=== PATIENT | male | born 2000 | race African-American/Black ===

== ENCOUNTER 2021-09-05 19:47 | Emergency (ER) | payer OTHER ==
[2021-09-05] MEDS ORDERED: Iopamidol 370 76% 100 ML VIAL FS ONE (19:48)
[2021-09-05 20:25] LABS: #Basophils 0.1 thou/uL (0.0-0.2); #Lymphocytes 1.2 thou/uL (1.20-3.40); #Monocytes 0.2 thou/uL (0.11-0.59); #Neutrophils 2.4 thou/uL (1.40-6.50); %Basophils 1.4 % (0.0-1.0); %Eosinophils 0.4 % (0.0-10.0); %Lymphocytes 31.2 % (21.0-51.0); %Monocytes 5.4 % (0.0-10.0); %Neutrophils 61.6 % (42.0-75.0); Hemoglobin 15.5 g/dL (14.0-18.0); Mean Corpuscular HGB CONC 31.6 g/dL (32.0-36.0); Mean Corpuscular Hemoglobin 25.1 pg (27.0-31.0); Mean Corpuscular Volume 79.7 fL (78.0-98.0); Mean Platelet Volume 10.4 fL (7.4-10.4); Platelet Count 111 thou/uL (130-400); Platelet Morphology Comment Appears Decreased; RBC Distribution Width 11.2 % (11.5-14.5); RBC Morphology Normal; Red Blood Cell (RBC) Count 6.16 mill/uL (4.70-6.10); White Blood Cell (WBC) Count 3.8 thou/uL (4.8-10.8)
[2021-09-05 20:32] LABS: ALT (SGPT) 35 U/L (8-55); AST (SGOT) 38 U/L (5-34); Albumin 4.4 g/dL (3.5-5.0); Alkaline Phosphatase 60 U/L (40-110); Anion Gap 13 mmol/L (10-20); BUN (Urea Nitrogen) 14 mg/dL (8.9-20.6); Bilirubin, Total 0.4 mg/dL (0.2-1.2); Calc. Creatinine Clearance 0 mL/min (70-130); Calcium 9.9 mg/dL (7.8-10.44); Carbon Dioxide 25 mmol/L (22-29); Chloride 105 mmol/L (98-107); Globulin 2.6 g/dL (2.4-3.5); Glucose 128 mg/dL (70-105); Lipase 20 U/L (8-78); Potassium 3.8 mmol/L (3.5-5.1); Sodium 139 mmol/L (136-145)
[2021-09-05] MEDS ORDERED: Acetaminophen 500 MG TAB ONE (22:00)
[2021-09-05] MEDS ORDERED: Bacitracin 1 PK ONE (22:00)
[2021-09-06 15:37] LABS: SARS-CoV-2 PCR by NAA DETECTED (NotDetected)
== END 2021-09-05 22:04 ==
LOC: MADERS 19:47
DX: U07.1 COVID-19 (principal); S20.211A Contusion of right front wall of thorax, initial encounter; S70.02XA Contusion of left hip, initial encounter; S60.511A Abrasion of right hand, initial encounter; V49.50XA Passenger injured in collision with unspecified motor vehicles in traffic accident, initial encounter
CPT/HCPCS: 71260; 72125; 74177; 80053; 83690; 85025; Q9967; U0003; U0005